=== PATIENT | male | born 1980 | race Caucasian/White ===

== ENCOUNTER 2016-07-28 10:44 | Emergency (ER) | payer SELFPAY ==
[~2016-07-28] VITALS: Ht 167.6 cm; Wt 97.7 kg
[~2016-07-28 10:44] MED LIST: METH750T2 PO; MOBI15TA PO
[2016-07-28 10:46] VITALS: BP 121/91; PULSE 64; RESP 12; TEMP 97.7; O2SAT 96
== END 2016-07-28 12:01 | disposition left against medical advice (07) ==
LOC: NEPB 10:44
DX: Z53.21 Procedure and treatment not carried out due to patient leaving prior to being seen by health care provider (principal)
CPT/HCPCS: 99281

== ENCOUNTER 2017-01-18 01:44 | Emergency (ER) | payer SELFPAY ==
[~2017-01-18] VITALS: Ht 170.2 cm; Wt 100.0 kg
[2017-01-18 01:48] VITALS: BP 125/88; PULSE 75; RESP 16; TEMP 97.5; O2SAT 97
[2017-01-18] MEDS ORDERED: SODIUM CHLOR 0.9% 1000 ML INJ 1,000 ML IV ONE (02:23)
--- NOTE | 2017-01-18 02:27 | PD ---
HPI Chief Complaint: Dizziness Time Seen by Provider: 02:16 Travel History International Travel<30 days: No Contact w/Intl Traveler<30days: No Traveled to known affect area: No History of Present Illness HPI The patient is a 36-year-old male who presents emergency department after he became claustrophobic, dizzy, lightheaded, and developed numbness and tingling of his hands bilaterally. The patient states he then stood up and became dizzy and lightheaded, and had an episode of nausea and vomiting. Patient states his symptoms have resolved, occurred at home while he was getting ready to go to bed. He denies any illicit drug use, chronic alcohol use , or chronic medical problems. He denies any current chest pain, shortness of breath, or abdominal pain. Symptoms are moderate, exacerbated after he got up to go to bed earlier today, and the symptoms were self alleviating. He denies any history of CAD, hypertension, hyperlipidemia, significant dehydration, or arrhythmias. PFSH Past Medical History Asthma: Yes Diminished Hearing: No Past Surgical History Surgical History: No Previous Surgery Social History Alcohol Use: Yes ("EVERY THURSDAY") Tobacco Use: Yes (1 PPD FOR 12 YEARS) Substance Use: Yes (MARIJUANA) Allergies-Medications (Allergen,Severity, Reaction): Coded Allergies: No Known Allergies (Verified , 01/18/17) Reported Meds & Prescriptions Reported Meds & Active Scripts Active Review of Systems Except as stated in HPI: all other systems reviewed are Neg General / Constitutional: Positive: Chills, No: Fever HENT: Positive: Lightheadedness Cardiovascular: Positive: Chest Pain or Discomfort Respiratory: No: Shortness of Breath Gastrointestinal: Positive: Nausea, Vomiting, No: Abdominal Pain Musculoskeletal: Positive: Weakness Neurologic: Positive: Weakness, Dizziness, Paresthesia Physical Exam Narrative GENERAL: Awake, alert, very pleasant 36-year-old male who appears his stated age is in no acute respiratory distress. SKIN: Focused skin assessment warm/dry. Multiple tattoos of the upper extremities noted. Old appearing contusion to the medial aspect the left lower leg. HEAD: Atraumatic. Normocephalic. EYES: Pupils equal and round. Pupils are 4 mm bilateral and reactive. ENT: No nasal bleeding or discharge. Mucous membranes pink and moist. NECK: Trachea midline. No JVD. CARDIOVASCULAR: Regular rate and rhythm. No murmur appreciated. RESPIRATORY: No accessory muscle use. Clear to auscultation. Breath sounds equal bilaterally. GASTROINTESTINAL: Abdomen soft, non-tender, nondistended. No rebound tenderness. MUSCULOSKELETAL: No obvious deformities. No clubbing. No cyanosis. No edema. NEUROLOGICAL: Awake and alert. No obvious cranial nerve deficits. Motor grossly within normal limits. Normal speech. Nonfocal. PSYCHIATRIC: Appropriate mood and affect; insight and judgment normal. Data Data Last Documented VS Vital Signs Date Time Temp Pulse Resp B/P Pulse Ox O2 Delivery O2 Flow Rate FiO2 01/18/17 02:57 67 16 119/73 01/18/17 02:56 98 Room Air 01/18/17 01:48 97.5 Orders Electrocardiogram (01/18/17 02:23) Complete Blood Count With Diff (01/18/17 02:23) Comprehensive Metabolic Panel (01/18/17 02:23) Magnesium (Mg) (01/18/17 02:23) Ckmb (Isoenzyme) Profile (01/18/17 02:23) Troponin I (01/18/17 02:23) Chest, Single Ap (01/18/17 02:23) Ecg Monitoring (01/18/17 02:23) Iv Access Insert/Monitor (01/18/17 02:23) Oximetry (01/18/17 02:23) Ondansetron Inj (Zofran Inj) (01/18/17 02:30) Sodium Chloride 0.9% Flush (Ns Flush) (01/18/17 02:30) Sodium Chlor 0.9% 1000 Ml Inj (Ns 1000 M (01/18/17 02:23) Orthostatic Vital Signs (01/18/17 02:23) CKMB (01/18/17 02:50) CKMB% (01/18/17 02:50) Labs Laboratory Tests Test 01/18/17 02:50 White Blood Count 10.0 TH/MM3 Red Blood Count 4.94 MIL/MM3 Hemoglobin 15.1 GM/DL Hematocrit 43.5 % Mean Corpuscular Volume 88.0 FL Mean Corpuscular Hemoglobin 30.5 PG Mean Corpuscular Hemoglobin 34.7 % Concent Red Cell Distribution Width 13.1 % Platelet Count 249 TH/MM3 Mean Platelet Volume 7.5 FL Neutrophils (%) (Auto) 55.7 % Lymphocytes (%) (Auto) 32.6 % Monocytes (%) (Auto) 9.2 % Eosinophils (%) (Auto) 1.7 % Basophils (%) (Auto) 0.8 % Neutrophils # (Auto) 5.6 TH/MM3 Lymphocytes # (Auto) 3.3 TH/MM3 Monocytes # (Auto) 0.9 TH/MM3 Eosinophils # (Auto) 0.2 TH/MM3 Basophils # (Auto) 0.1 TH/MM3 CBC Comment DIFF FINAL Differential Comment Sodium Level 139 MEQ/L Potassium Level 4.2 MEQ/L Chloride Level 107 MEQ/L Carbon Dioxide Level 23.9 MEQ/L Anion Gap 8 MEQ/L Blood Urea Nitrogen 18 MG/DL Creatinine 0.79 MG/DL Estimat Glomerular Filtration 112 ML/MIN Rate Random Glucose 86 MG/DL Calcium Level 8.4 MG/DL Magnesium Level 2.1 MG/DL Total Bilirubin 0.3 MG/DL Aspartate Amino Transf 21 U/L (AST/SGOT) Alanine Aminotransferase 48 U/L (ALT/SGPT) Alkaline Phosphatase 72 U/L Total Creatine Kinase 135 U/L Creatine Kinase MB 0.9 NG/ML Troponin I LESS THAN 0.02 NG/ML Total Protein 7.5 GM/DL Albumin 3.6 GM/DL MDM Medical Decision Making Medical Screen Exam Complete: Yes Emergency Medical Condition: Yes Medical Record Reviewed: Yes Interpretation(s) EKG reveals normal sinus rhythm with a rate of 67. No ischemic changes or ectopy noted. No evidence of WPW or Brugada syndrome. Laboratory Tests Test 01/18/17 02:50 White Blood Count 10.0 TH/MM3 Red Blood Count 4.94 MIL/MM3 Hemoglobin 15.1 GM/DL Hematocrit 43.5 % Mean Corpuscular Volume 88.0 FL Mean Corpuscular Hemoglobin 30.5 PG Mean Corpuscular Hemoglobin 34.7 % Concent Red Cell Distribution Width 13.1 % Platelet Count 249 TH/MM3 Mean Platelet Volume 7.5 FL Neutrophils (%) (Auto) 55.7 % Lymphocytes (%) (Auto) 32.6 % Monocytes (%) (Auto) 9.2 % Eosinophils (%) (Auto) 1.7 % Basophils (%) (Auto) 0.8 % Neutrophils # (Auto) 5.6 TH/MM3 Lymphocytes # (Auto) 3.3 TH/MM3 Monocytes # (Auto) 0.9 TH/MM3 Eosinophils # (Auto) 0.2 TH/MM3 Basophils # (Auto) 0.1 TH/MM3 CBC Comment DIFF FINAL Differential Comment Sodium Level 139 MEQ/L Potassium Level 4.2 MEQ/L Chloride Level 107 MEQ/L Carbon Dioxide Level 23.9 MEQ/L Anion Gap 8 MEQ/L Blood Urea Nitrogen 18 MG/DL Creatinine 0.79 MG/DL Estimat Glomerular Filtration 112 ML/MIN Rate Random Glucose 86 MG/DL Calcium Level 8.4 MG/DL Magnesium Level 2.1 MG/DL Total Bilirubin 0.3 MG/DL Aspartate Amino Transf 21 U/L (AST/SGOT) Alanine Aminotransferase 48 U/L (ALT/SGPT) Alkaline Phosphatase 72 U/L Total Creatine Kinase 135 U/L Creatine Kinase MB 0.9 NG/ML Troponin I LESS THAN 0.02 NG/ML Total Protein 7.5 GM/DL Albumin 3.6 GM/DL Differential Diagnosis Differential diagnosis includes arrhythmia, orthostatic hypotension, dehydration , hypokalemia, hyperkalemia, acute renal failure, hypocalcemia, vasovagal episode. Narrative Course IV was established, labs are drawn and sent, and the patient was placed on cardiac telemetry monitoring and continuous pulse oximetry monitoring. EKG was ordered and interpreted. Chest x-rays obtained. The patient was administered 1 L of IV fluids and orthostatic vital signs were obtained. Chest x-ray was unremarkable. EKG was within normal limits, no evidence of WPW, Brugada syndrome, or arrhythmia. Patient was monitored for 2 hours, no evidence of ectopy or arrhythmias. Orthostatic vital signs were obtained, were normal. The patient was reassessed at 4:04 AM. The patient symptoms have resolved, he stable for outpatient follow-up. Diagnosis Primary Impression: Dizziness Patient Instructions: General Instructions Additional Instructions: Please provide a patient a copy of his x-ray results and lab results at discharge. Follow-up with your primary physician. Plenty fluids to stay hydrated. Return if symptoms worsen or progress. Med/Other Pt SpecificInfo: No Change to Meds Disposition: 01 DISCHARGE HOME Condition: Stable Julio Tsai MD Jan 18, 2017 02:27
[2017-01-18] MEDS ORDERED: SODIUM CHLORIDE 0.9% FLUSH 10 ML FLUSH IVF PRN (02:30)
[2017-01-18] MEDS ORDERED: ONDANSETRON HCL 4 MG/2 ML VIAL IVP ONE (02:30)
[2017-01-18 02:54] VITALS: BP 117/69; RESP 16
[2017-01-18 02:56] VITALS: PULSE 67; RESP 16; O2SAT 98
[2017-01-18 02:57] VITALS: BP_SYST 119; BP_SYST 125; BP_DIAS 73; BP_DIAS 84; RESP 16
--- NOTE | 2017-01-18 03:07 | RADRPT ---
EXAM DATE/TIME: 01/18/2017 02:34 [facility] COMPARISON: No previous studies available for comparison. INDICATIONS : Palpitations. MEDICAL HISTORY : None. SURGICAL HISTORY : None. ENCOUNTER: Initial ACUITY: 1 day PAIN SCORE: 0/10 LOCATION: Bilateral chest FINDINGS: A single view of the chest demonstrates the lungs to be symmetrically aerated without evidence of mas s, infiltrate or effusion. The cardiomediastinal contours are unremarkable. Osseous structures are intact. CONCLUSION: No acute disease. Kristopher Owens MD on January 18, 2017 at 3:05 Board Certified Radiologist. This report was verified electronically.
[2017-01-18 03:14] LABS: AUTOMATED NEUTROPHIL # 5.6 TH/MM3 (1.8-7.7); BASOPHIL # 0.1 TH/MM3 (0-0.2); BASOPHIL % 0.8 % (0.0-2.0); EOSINOPHIL # 0.2 TH/MM3 (0-0.4); EOSINOPHIL % 1.7 % (0.0-4.0); HEMATOCRIT 43.5 % (39.0-51.0); HEMO FLAGS DIFF FINAL; LYMPH % 32.6 % (9.0-44.0); LYMPHOCYTE # 3.3 TH/MM3 (1.0-4.8); MEAN CORPUSCULAR HEMOGLOBIN 30.5 PG (27.0-34.0); MEAN CORPUSCULAR HGB CONC 34.7 % (32.0-36.0); MONO % 9.2 % (0.0-8.0); NEUT % 55.7 % (16.0-70.0); PLATELET COUNT 249 TH/MM3 (150-450); RED BLOOD COUNT 4.94 MIL/MM3 (4.50-5.90); RED CELL DISTRIBUTION WIDTH 13.1 % (11.6-17.2)
[2017-01-18 03:32] LABS: ALKALINE PHOSPHATASE 72 U/L (45-117); CREATINE KINASE 135 U/L (39-308); TOTAL BILIRUBIN ADULT 0.3 MG/DL (0.2-1.0)
[2017-01-18 03:37] LABS: ALT (GPT) 48 U/L (12-78); ANION GAP 8 MEQ/L (5-15); AST (GOT) 21 U/L (15-37); BICARBONATE 23.9 MEQ/L (21.0-32.0); BLOOD UREA NITROGEN 18 MG/DL (7-18); CHLORIDE 107 MEQ/L (98-107); GLOMERULAR FILTRATION RATE 112 ML/MIN (>89); MAGNESIUM 2.1 MG/DL (1.5-2.5); POTASSIUM 4.2 MEQ/L (3.5-5.1); SODIUM (NA) 139 MEQ/L (136-145)
[2017-01-18 03:44] LABS: CKMB 0.9 NG/ML (0.5-3.6)
--- NOTE | 2017-01-18 12:10 | EKG ---
Date Performed: 01/18/2017 Time Performed: 02:46:57 PTAGE: 36 years EKG: Sinus rhythm Compared to previous tracing, the axis has normalized. NORMAL ECG PREVIOUS TRACING : 01/16/2016 04.35 DOCTOR: Sumit Adan Interpretating Date/Time 01/18/2017 12:09:46
== END 2017-01-18 05:07 | disposition home or self-care (01) ==
LOC: NEPC 01:44
DX: R42 Dizziness and giddiness (principal); F40.240 Claustrophobia; R20.2 Paresthesia of skin; R11.2 Nausea with vomiting, unspecified; F17.200 Nicotine dependence, unspecified, uncomplicated; Z87.09 Personal history of other diseases of the respiratory system
CPT/HCPCS: 71010; 80053; 82550; 82552; 83735; 84484; 85025; 93005; 96361; 96374; 99285; J2405; J7030

== ENCOUNTER 2017-03-17 13:26 | Emergency (ER) | payer SELFPAY ==
[~2017-03-17] VITALS: Ht 170.2 cm; Wt 102.0 kg
[2017-03-17 13:27] VITALS: BP 125/71; PULSE 97; RESP 18; TEMP 98.4; O2SAT 95
== END 2017-03-17 14:54 | disposition left against medical advice (07) ==
LOC: NED 13:26
DX: K08.89 Other specified disorders of teeth and supporting structures (principal); Z53.21 Procedure and treatment not carried out due to patient leaving prior to being seen by health care provider
CPT/HCPCS: 99281

== ENCOUNTER 2017-09-29 22:49 | Emergency (ER) | payer SELFPAY ==
[~2017-09-29] VITALS: Ht 170.2 cm; Wt 90.0 kg
[2017-09-29 23:12] VITALS: BP 121/64; PULSE 88; RESP 18; TEMP 97.4; O2SAT 97
== END 2017-09-30 02:55 | disposition left against medical advice (07) ==
LOC: NED 22:49
DX: M54.9 Dorsalgia, unspecified (principal)
CPT/HCPCS: 99281